=== PATIENT | female | born 1935 | race Caucasian/White ===

== ENCOUNTER 2020-05-25 11:10 | Inpatient (IN) | payer BC ==
[~2020-05-25] VITALS: Ht 175.3 cm; Wt 61.3 kg
[~2020-05-25 11:10] MED LIST: GLIP1TAB8 OR; HYDR-2533; LEVO125T46 OR; LOVA1TAB62 OR; METF-370 OR; PIOG30TA20 OR; RALO60TA10 OR
[2020-05-25] MEDS ORDERED: LACTATED RINGER'S 1,000 ML IV ONE (11:45)
[2020-05-25 12:18] LABS: Basophils # (auto) 0 10 ^3/uL (0-0.2); Basophils % (auto) 0.3 % (0.0-2.0); Eosinophils # (auto) 0 10 ^3/uL (0-0.8); Monocytes # (auto) 0.5 10 ^3/uL (0-1.3); Red Cell Distribution Width 15.8 % (11.8-14.3)
[2020-05-25 12:20] LABS: Hematocrit 36.2 % (36.0-46.0); Lymphocytes # (auto) 0.4 10 ^3/uL (0.4-5.4); Lymphocytes % (auto) 5.6 % (10.0-50.0); Mean Corpuscular Hemoglobin 27.3 pg (28.0-32.0); Mean Corpuscular Hgb Conc. 33.2 g/dL (32.0-36.0); Mean Corpuscular Volume 82.1 fL (80.0-100.0); Monocytes % (auto) 6.9 % (0.0-12.0); Neutrophils # (auto) 6.6 10 ^3/uL (1.6-8.6); Neutrophils % (auto) 87.2 % (37.0-80.0); Nucleated Red Blood Cells % 0.2 %; Platelet Count (auto) 384 10^3/uL (140-450); White Blood Cell 7.6 10^3/uL (4.4-10.8)
[2020-05-25 12:31] LABS: Albumin 2.9 g/dL (3.4-5.0); Anion Gap 15 (5-15); Blood Urea Nitrogen 20 mg/dL (7-18); Calcium 8.2 mg/dL (8.5-10.1); Carbon Dioxide 17 mmol/L (21-32); Chloride 100 mmol/L (98-107); Glucose 290 mg/dL (74-106); Magnesium 2.2 mg/dL (1.6-2.6); Potassium 3.8 mmol/L (3.5-5.1); Sodium 132 mmol/L (136-145)
[2020-05-25 12:39] LABS: Alanine Aminotransferase 24 U/L (13-56); Alkaline Phosphatase 90 U/L (45-117); Aspartate Aminotransferase 34 U/L (15-37); BUN/Creatinine Ratio 18.3; Bilirubin, Total 0.6 mg/dL (0.2-1.0); GFR African American 62 mL/min; GFR Non-African American 51 mL/min; Lactate Dehydrogenase 367 U/L (84-246); Total Protein 8.2 g/dL (6.4-8.2)
[2020-05-25 13:16] LABS: Partial Thromboplastin Time 62.1 sec (23.0-31.2)
[2020-05-25 13:21] LABS: INR > 8.0 (0.9-1.15)
[2020-05-25] MEDS ORDERED: PHYTONADIONE (VIT K)10 MG/ML 1ML VIAL SUBCUT ONE (13:30)
[2020-05-25 14:33] LABS: Urine Bacteria NONE SEEN /hpf (None Seen); Urine Blood 1+ /uL (Negative); Urine Specific Gravity 1.029 (1.001-1.035); Urine WBC <1 /hpf (0 - 5)
[2020-05-25] MEDS ORDERED: AZITHROMYCIN 500MG/ 250ML 250 ML IV ONE (15:00)
[2020-05-25] MEDS ORDERED: DexAMETHasone INJECTION 10 MG in D5W 5% 50 ML IV ONE (15:00)
[2020-05-25] MEDS ORDERED: DexAMETHasone SOD PHOS 10MG/1ML VIAL INJ ONE (15:43)
[2020-05-25] MEDS ORDERED: NITROGLYCERIN 0.4 MG SL TAB SL PRN (16:30)
[2020-05-25] MEDS ORDERED: MORPHINE SULF INJ 2 MG/ML SYRINGE 1ML IV PRN (16:30)
[2020-05-25] MEDS ORDERED: DEXTROSE (50%) 50ML SYRG IV PRN (16:30)
[2020-05-25] MEDS ORDERED: METOPROLOL TARTRATE 1MG/1ML-5ML VIAL IV PRN (16:30)
[2020-05-25] MEDS: ACCU-CHEK COMFORT CURVE STRIP VI SCH ×2 (17:00→22:04)
[2020-05-25] MEDS: InsuLIN REG 1unit/0.01ml Soln (100units/ml) SC SCH ×2 (17:37→22:04)
[2020-05-25] MEDS ORDERED: SITA100T7 PO (18:15)
[2020-05-25] MEDS ORDERED: SERT-160 PO (18:15)
[2020-05-25] MEDS ORDERED: ATEN25TA PO (18:15)
[2020-05-25] MEDS ORDERED: LISI2.5T47 PO (18:15)
[2020-05-25] MEDS ORDERED: WARF4TAB33 PO (18:15)
[2020-05-25] MEDS: ALBUTEROL SULF HFA 90MCG INH 200DOSE IN SCH (19:22)
[2020-05-25] MEDS: METOPROLOL TARTRATE 50 MG TAB PO SCH (22:03)
[2020-05-25] MEDS: PRAVASTATIN SODIUM 20 MG TAB PO SCH (22:03)
[2020-05-25] MEDS: DOXYCYCLINE 100 MG TAB/CAP PO SCH (22:03)
[2020-05-26] VITALS: BP 113/76
[2020-05-26] MEDS: LEVOTHYROXINE SODIUM 50 MCG TAB PO SCH (06:22)
[2020-05-26] MEDS: ACCU-CHEK COMFORT CURVE STRIP VI SCH ×4 (06:22→23:10)
[2020-05-26] MEDS: InsuLIN REG 1unit/0.01ml Soln (100units/ml) SC SCH ×4 (06:23→22:00)
[2020-05-26 06:38] LABS: Basophils # (auto) 0 10 ^3/uL (0-0.2); Basophils % (auto) 0.1 % (0.0-2.0); Eosinophils # (auto) 0 10 ^3/uL (0-0.8); Hematocrit 32.8 % (36.0-46.0); Lymphocytes # (auto) 0.5 10 ^3/uL (0.4-5.4); Lymphocytes % (auto) 6.2 % (10.0-50.0); Mean Corpuscular Hemoglobin 27.3 pg (28.0-32.0); Mean Corpuscular Hgb Conc. 33.6 g/dL (32.0-36.0); Mean Corpuscular Volume 81.1 fL (80.0-100.0); Monocytes # (auto) 0.6 10 ^3/uL (0-1.3); Monocytes % (auto) 7.4 % (0.0-12.0); Neutrophils # (auto) 6.7 10 ^3/uL (1.6-8.6); Neutrophils % (auto) 86.3 % (37.0-80.0); Platelet Count (auto) 389 10^3/uL (140-450); Red Blood Cells 4.05 10^6/uL (4.0-5.20); Red Cell Distribution Width 15.5 % (11.8-14.3); White Blood Cell 7.8 10^3/uL (4.4-10.8)
[2020-05-26 06:46] LABS: BUN/Creatinine Ratio 20.6; Calcium 8.1 mg/dL (8.5-10.1); Magnesium 1.9 mg/dL (1.6-2.6); Potassium 3.5 mmol/L (3.5-5.1)
[2020-05-26 06:49] LABS: INR 2.94 (0.9-1.15); Partial Thromboplastin Time 42.1 sec (23.0-31.2)
[2020-05-26 07:02] LABS: CRP High Sensitivity 10.5 mg/dL (< 0.3)
[2020-05-26 08:00] VITALS: BP 132/74
[2020-05-26] MEDS: ALBUTEROL SULF HFA 90MCG INH 200DOSE IN SCH ×3 (08:00→19:46)
[2020-05-26] MEDS: DOXYCYCLINE 100 MG TAB/CAP PO SCH ×2 (08:54→22:00)
[2020-05-26] MEDS: DexAMETHasone SOD PHOS 10MG/1ML VIAL INJ IV SCH (08:54)
[2020-05-26] MEDS: METOPROLOL TARTRATE 50 MG TAB PO SCH ×2 (08:55→22:00)
[2020-05-26 16:00] VITALS: BP 110/58
[2020-05-26] MEDS: PRAVASTATIN SODIUM 20 MG TAB PO SCH (22:00)
[2020-05-27] VITALS: BP 110/59
[2020-05-27] MEDS: InsuLIN REG 1unit/0.01ml Soln (100units/ml) SC SCH ×4 (06:41→22:00)
[2020-05-27] MEDS: ACCU-CHEK COMFORT CURVE STRIP VI SCH ×4 (06:42→22:00)
[2020-05-27] MEDS: LEVOTHYROXINE SODIUM 50 MCG TAB PO SCH (06:42)
[2020-05-27 08:00] VITALS: BP 129/80
[2020-05-27] MEDS ORDERED: ALBUTEROL SULF HFA 90MCG INH 200DOSE IN PRN (08:45)
[2020-05-27] MEDS: DOXYCYCLINE 100 MG TAB/CAP PO SCH ×2 (09:34→22:00)
[2020-05-27] MEDS: METOPROLOL TARTRATE 50 MG TAB PO SCH ×2 (09:34→22:00)
[2020-05-27] MEDS: DexAMETHasone SOD PHOS 10MG/1ML VIAL INJ IV SCH (09:34)
[2020-05-27 11:55] LABS: Basophils # (auto) 0 10 ^3/uL (0-0.2); Basophils % (auto) 0.2 % (0.0-2.0); Eosinophils # (auto) 0 10 ^3/uL (0-0.8); Hematocrit 36.6 % (36.0-46.0); Hemoglobin 11.9 g/dL (12.2-16.2); Lymphocytes # (auto) 0.5 10 ^3/uL (0.4-5.4); Lymphocytes % (auto) 5.9 % (10.0-50.0); Mean Corpuscular Hemoglobin 26.5 pg (28.0-32.0); Mean Corpuscular Hgb Conc. 32.5 g/dL (32.0-36.0); Mean Corpuscular Volume 81.5 fL (80.0-100.0); Monocytes # (auto) 0.4 10 ^3/uL (0-1.3); Monocytes % (auto) 5.6 % (0.0-12.0); Neutrophils # (auto) 6.8 10 ^3/uL (1.6-8.6); Neutrophils % (auto) 88.3 % (37.0-80.0); Platelet Count (auto) 387 10^3/uL (140-450); Red Blood Cells 4.49 10^6/uL (4.0-5.20); Red Cell Distribution Width 15.9 % (11.8-14.3); White Blood Cell 7.7 10^3/uL (4.4-10.8)
[2020-05-27 12:08] LABS: BUN/Creatinine Ratio 32.5; Calcium 8.1 mg/dL (8.5-10.1); Potassium 3.7 mmol/L (3.5-5.1)
[2020-05-27 12:12] LABS: INR 1.1 (0.9-1.15); Partial Thromboplastin Time 25.8 sec (23.0-31.2)
[2020-05-27 12:17] LABS: CRP High Sensitivity 9.28 mg/dL (< 0.3)
[2020-05-27 16:00] VITALS: BP 107/69
[2020-05-27] MEDS: ALBUTEROL SULF HFA 90MCG INH 200DOSE IN SCH (19:08)
[2020-05-27] MEDS ORDERED: WARFARIN SODIUM 5 MG TAB PO ONE (20:00)
[2020-05-27] MEDS: PRAVASTATIN SODIUM 20 MG TAB PO SCH (22:00)
[2020-05-27 23:59] LABS: Basophils # (auto) 0 10 ^3/uL (0-0.2); Eosinophils # (auto) 0 10 ^3/uL (0-0.8); Hematocrit 36.6 % (36.0-46.0); Hemoglobin 11.9 g/dL (12.2-16.2); Mean Corpuscular Hgb Conc. 32.5 g/dL (32.0-36.0); Neutrophils # (auto) 4.7 10 ^3/uL (1.6-8.6); Red Cell Distribution Width 15.8 % (11.8-14.3); White Blood Cell 5.9 10^3/uL (4.4-10.8)
[2020-05-28] VITALS: BP 117/70
[2020-05-28 00:01] LABS: Basophils % (auto) 0.1 % (0.0-2.0); Lymphocytes # (auto) 0.8 10 ^3/uL (0.4-5.4); Lymphocytes % (auto) 13.1 % (10.0-50.0); Mean Corpuscular Hemoglobin 26.5 pg (28.0-32.0); Mean Corpuscular Volume 81.7 fL (80.0-100.0); Monocytes # (auto) 0.5 10 ^3/uL (0-1.3); Monocytes % (auto) 8.2 % (0.0-12.0); Neutrophils % (auto) 78.6 % (37.0-80.0); Platelet Count (auto) 344 10^3/uL (140-450); Red Blood Cells 4.48 10^6/uL (4.0-5.20)
[2020-05-28 01:17] VITALS: BP 117/70
[2020-05-28] MEDS: ACCU-CHEK COMFORT CURVE STRIP VI SCH ×4 (06:13→21:50)
[2020-05-28] MEDS: LEVOTHYROXINE SODIUM 50 MCG TAB PO SCH (06:13)
[2020-05-28] MEDS: InsuLIN REG 1unit/0.01ml Soln (100units/ml) SC SCH ×4 (06:14→21:50)
[2020-05-28 06:55] LABS: Basophils # (auto) 0 10 ^3/uL (0-0.2); Eosinophils # (auto) 0 10 ^3/uL (0-0.8); Eosinophils % (auto) 0.1 % (0.0-7.0); Hemoglobin 11.9 g/dL (12.2-16.2); Lymphocytes # (auto) 0.9 10 ^3/uL (0.4-5.4); Mean Corpuscular Hgb Conc. 32.8 g/dL (32.0-36.0); Monocytes # (auto) 0.5 10 ^3/uL (0-1.3); Nucleated Red Blood Cells % 0.1 %
[2020-05-28 06:59] LABS: Basophils % (auto) 0.2 % (0.0-2.0); Hematocrit 36.2 % (36.0-46.0); Lymphocytes % (auto) 11.1 % (10.0-50.0); Mean Corpuscular Hemoglobin 26.5 pg (28.0-32.0); Mean Corpuscular Volume 80.8 fL (80.0-100.0); Monocytes % (auto) 6.7 % (0.0-12.0); Neutrophils # (auto) 6.3 10 ^3/uL (1.6-8.6); Neutrophils % (auto) 81.9 % (37.0-80.0); Platelet Count (auto) 385 10^3/uL (140-450); Red Blood Cells 4.48 10^6/uL (4.0-5.20); Red Cell Distribution Width 15.8 % (11.8-14.3); White Blood Cell 7.7 10^3/uL (4.4-10.8)
[2020-05-28 07:19] LABS: INR 1.04 (0.9-1.15)
[2020-05-28 08:00] VITALS: BP 103/65
[2020-05-28] MEDS: DexAMETHasone SOD PHOS 10MG/1ML VIAL INJ IV SCH (10:33)
[2020-05-28] MEDS: DOXYCYCLINE 100 MG TAB/CAP PO SCH ×2 (10:34→21:40)
[2020-05-28] MEDS: METOPROLOL TARTRATE 50 MG TAB PO SCH ×2 (10:34→21:39)
[2020-05-28 16:15] VITALS: BP 99/69
[2020-05-28] MEDS ORDERED: WARFARIN SODIUM 5 MG TAB PO ONE (17:00)
[2020-05-28] MEDS: ALBUTEROL SULF HFA 90MCG INH 200DOSE IN SCH (19:38)
[2020-05-28] MEDS: PRAVASTATIN SODIUM 20 MG TAB PO SCH (21:40)
[2020-05-29] VITALS: BP 115/67
[2020-05-29] MEDS ORDERED: HYDROcodone-ACET 5/325MG TAB PO PRN (03:00)
[2020-05-29 06:02] LABS: INR 1.14 (0.9-1.15); Partial Thromboplastin Time 25.1 sec (23.0-31.2)
[2020-05-29] MEDS: LEVOTHYROXINE SODIUM 50 MCG TAB PO SCH (06:27)
[2020-05-29] MEDS: InsuLIN REG 1unit/0.01ml Soln (100units/ml) SC SCH ×3 (06:27→17:00)
[2020-05-29] MEDS: ACCU-CHEK COMFORT CURVE STRIP VI SCH ×3 (06:28→17:00)
[2020-05-29 08:00] VITALS: BP 91/64
[2020-05-29] MEDS: ALBUTEROL SULF HFA 90MCG INH 200DOSE IN SCH (08:20)
[2020-05-29] MEDS: METOPROLOL TARTRATE 50 MG TAB PO SCH (09:27)
[2020-05-29] MEDS: DOXYCYCLINE 100 MG TAB/CAP PO SCH (09:29)
[2020-05-29] MEDS: DexAMETHasone SOD PHOS 10MG/1ML VIAL INJ IV SCH (09:29)
[2020-05-29 16:00] VITALS: BP 99/66
[2020-05-29 16:43] VITALS: BP 91/64
[2020-05-29] MEDS ORDERED: WARFARIN SODIUM 5 MG TAB PO ONE (17:00)
== END 2020-05-29 17:23 | DRG 177 ==
LOC: ER 11:10 → EDBD 11:10 → TELE-WESTW 11:11
PROVIDERS: ADMIT Internal Medicine; ATTEND Internal Medicine
DX: U07.1 COVID-19 (principal); J12.82 Pneumonia due to coronavirus disease 2019; J96.01 Acute respiratory failure with hypoxia; J15.9 Unspecified bacterial pneumonia; J98.11 Atelectasis; T45.515A Adverse effect of anticoagulants, initial encounter; I48.91 Unspecified atrial fibrillation; I10 Essential (primary) hypertension; E03.9 Hypothyroidism, unspecified; E78.5 Hyperlipidemia, unspecified; R53.81 Other malaise; E11.9 Type 2 diabetes mellitus without complications; F32.9 Major depressive disorder, single episode, unspecified; Y92.89 Other specified places as the place of occurrence of the external cause; Z79.84 Long term (current) use of oral hypoglycemic drugs; Z88.2 Allergy status to sulfonamides; Z88.5 Allergy status to narcotic agent
CPT/HCPCS: 36415; 36600; 71045; 80048; 80053; 81001; 82728; 82805; 82962; 83605; 83615; 83735; 83880; 84484; 85025; 85379; 85610; 85730; 86141; 87040; 87426; 93005; 93970; 94640; 97110; 97530; 99291; G0378; J1100; J1815; J3430; J7060